=== PATIENT | female | born 1975 | race Caucasian/White ===

== ENCOUNTER 2016-09-26 21:21 | Emergency (ER) | payer BC ==
[~2016-09-26] VITALS: Ht 160 cm; Wt 115.8 kg
[~2016-09-26 21:21] MED LIST: LEVO50TA PO; PREN1TAB29
[2016-09-26 21:23] VITALS: TEMP 36.5; Ht 160 cm; Wt 115.8 kg
[2016-09-26 22:06] LABS: BASO % 0.2 %; BASO ABS # 0.02 K/uL (0-0.2); COMPLETE YES; EOS % 1.2 %; HEMATOCRIT 36.9 % (37-47); IG% 0.2 %; LYMPH % 24.5 %; MEAN CORPUSCULAR HEMOGLOBIN 26.3 pg (25-34); MEAN CORPUSCULAR HGB CONC 34.1 g/dl (32-36); MONO % 4.7 %; NEUT % 69.2 %; PLATELET COUNT 260 K/uL (130-400); RED BLOOD COUNT 4.79 M/uL (4.2-5.4); WHITE BLOOD COUNT 8.97 K/uL (4.8-10.8)
[2016-09-26] MEDS ORDERED: FERR50TA3 PO (22:09)
[2016-09-26] MEDS ORDERED: NAPR-1169 PO (22:09)
--- NOTE | 2016-09-26 22:12 | DIAGNOSTIC IMAGING REPORT ---
CHEST ONE VIEW PORTABLE HISTORY: Atypical CHEST PAIN COMPARISON: Chest 10/10/2012. FINDINGS: The lungs are clear. Cardiac silhouette is normal in size. No pleural effusions. No pneumothorax. IMPRESSION: No acute process. Electronically signed by: Wagner Almendarez M.D. 09/26/2016 10:10 PM Dictated Date/Time: 09/26/2016 10:09 PM
[2016-09-26 22:24] LABS: ALT/SGPT 32 U/L (12-78); BLOOD UREA NITROGEN 15 mg/dl (7-18); BUN/CREATININE RATIO 20.8 (10-20); CALCIUM 8.4 mg/dl (8.5-10.1); CARBON DIOXIDE 26 mmol/L (21-32); CHLORIDE 106 mmol/L (98-107); CREATININE 0.72 mg/dl (0.60-1.20); GLUCOSE 93 mg/dl (70-99); MAGNESIUM 1.9 mg/dl (1.8-2.4); POTASSIUM 3.7 mmol/L (3.5-5.1); SODIUM 140 mmol/L (136-145)
[2016-09-26 22:32] LABS: ALKALINE PHOSPHATASE 105 U/L (45-117); AST/SGOT 14 U/L (15-37); PREG INTERNAL NEGATIVE QC NEG CLEAR BACKGROUND; PREG INTERNAL POSITIVE QC POS CONTROL LINE
--- NOTE | 2016-09-27 00:22 | EMERGENCY ROOM VISIT NOTE ---
History First contact with patient: 21:28 Chief Complaint: CHEST PAIN Stated Complaint: CHEST TIGHTNES Nursing Triage Summary: patient reports back shoulder pain with pressure in the chest patient reports high blood pressure at doctor office patient reports "uneasy feeling" History of Present Illness The patient is a 41 year old female who presents to the Emergency Room with complaints of left-sided chest pain since this afternoon described as discomfort and feeling uneasy. Patient states most of her symptoms have not resolved. She had an ectopic back in April that was surgically removed. Her father had blood clots in his legs a few years ago. No other family history of clotting disorder. No family history of heart disease. Patient denies high blood pressure, cholesterol, diabetes. Patient does not smoke. Patient denies dyspnea, fever, chills, cough, congestion, abdominal pain , nausea, vomiting, diarrhea, back pain. Patient denies leg pain or swelling. Review of Systems See HPI for pertinent positives & negatives. A total of 10 systems reviewed and were otherwise negative. Past Medical/Surgical History Medical Problems: (1) CALCULUS OF KIDNEY (2) Kidney stone (3) Left shoulder surgery Surgical Problems: (1) Hx of cholecystectomy Family History Diabetes mellitus FHx: cancer FHx: gallbladder disease Hypertension Seizures Social History Smoking Status: Never Smoker Alcohol Use: none Drug Use: none Marital Status: single Occupation Status: employed Current/Historical Medications Scheduled Ferrous Sulfate (Iron (Ferrous Sulfate)), 1 TAB PO DAILY Scheduled PRN Naproxen (Naprosyn), 500 MG PO BID PRN for Pain Allergies Coded Allergies: Chicken Meat (Verified Allergy, Mild, GI SYMPTOMS, 09/26/16) Physical Exam Vital Signs Date Time Temp Pulse Resp B/P Pulse Ox O2 Delivery O2 Flow Rate FiO2 09/26/16 23:29 75 18 122/84 100 Room Air 09/26/16 21:55 82 09/26/16 21:23 36.5 98 18 143/77 98 Room Air Physical Exam VITALS: Vitals are noted on the nurse's note and reviewed by myself. Vital signs stable. GENERAL:pleasant female, in no acute distress, nondiaphoretic, well-developed well-nourished. SKIN: The skin was without rashes, erythema, edema, or bruising. There is no tenting of the skin. Capillary reflex less than 2 seconds. HEAD: Normocephalic atraumatic. EARS: External auditory canals clear, tympanic membranes pearly reilly without erythema or effusion bilaterally. EYES: Pupils equal round and reactive to light and accommodation. Conjunctivae without injection, sclerae without icterus. Extraocular movements intact. NOSE: Patent, turbinates without inflammation or discharge. MOUTH: Mucous membranes moist. Pharynx without erythema or exudate. Uvula midline. Airway patent. Tongue does not deviate. NECK: Supple without nuchal rigidity. No lymphadenopathy. No thyromegaly. Cervical spine is nontender. No JVD. HEART: Regular rate and rhythm without murmurs gallops or rubs. Chest nontender to palpation LUNGS: Clear to auscultation bilaterally without wheezes, rales or rhonchi. No dullness to percussion. No retractions or accessory muscle use. ABDOMEN: Positive bowel sounds x 4. Normal tympanic percussion. Soft, protuberant, obese, nontender, without masses or organomegaly. Mireles sign negative. No guarding or rebound tenderness. MUSCULOSKELETAL: No muscle atrophy, erythema, or edema noted. NEURO: Patient was alert and oriented to person place and time. Normal sensation to light and sharp touch. No focal neurological deficits. Medical Decision & Procedures Laboratory Results 09/26/16 21:53 Red Blood Count 4.79, Mean Corpuscular Volume 77.0, Mean Corpuscular Hemoglobin 26.3, Mean Corpuscular Hemoglobin Concent 34.1, Mean Platelet Volume 11.0, Neutrophils (%) (Auto) 69.2, Lymphocytes (%) (Auto) 24.5, Monocytes (%) (Auto) 4.7, Eosinophils (%) (Auto) 1.2, Basophils (%) (Auto) 0.2, Neutrophils # (Auto) 6.20, Lymphocytes # (Auto) 2.20, Monocytes # (Auto) 0.42, Eosinophils # (Auto) 0.11, Basophils # (Auto) 0.02 09/26/16 21:53 Test 09/26/16 21:51 09/26/16 21:53 09/26/16 23:20 Bedside D-Dimer 377 ng/mlFEU (0-450) White Blood Count 8.97 K/uL (4.8-10.8) Red Blood Count 4.79 M/uL (4.2-5.4) Hemoglobin 12.6 g/dL (12.0-16.0) Hematocrit 36.9 % (37-47) Mean Corpuscular Volume 77.0 fL (80-100) Mean Corpuscular Hemoglobin 26.3 pg (25-34) Mean Corpuscular Hemoglobin Concent 34.1 g/dl (32-36) Platelet Count 260 K/uL (130-400) Mean Platelet Volume 11.0 fL (7.4-10.4) Neutrophils (%) (Auto) 69.2 % Lymphocytes (%) (Auto) 24.5 % Monocytes (%) (Auto) 4.7 % Eosinophils (%) (Auto) 1.2 % Basophils (%) (Auto) 0.2 % Neutrophils # (Auto) 6.20 K/uL (1.4-6.5) Lymphocytes # (Auto) 2.20 K/uL (1.2-3.4) Monocytes # (Auto) 0.42 K/uL (0.11-0.59) Eosinophils # (Auto) 0.11 K/uL (0-0.5) Basophils # (Auto) 0.02 K/uL (0-0.2) RDW Standard Deviation 43.0 fL (36.4-46.3) RDW Coefficient of Variation 15.4 % (11.5-14.5) Immature Granulocyte % (Auto) 0.2 % Immature Granulocyte # (Auto) 0.02 K/uL (0.00-0.02) Anion Gap 8.0 mmol/L (3-11) Est Creatinine Clear Calc Drug Dose 127.5 ml/min Estimated GFR () 121.4 Estimated GFR (Non- 104.8 BUN/Creatinine Ratio 20.8 (10-20) Calcium Level 8.4 mg/dl (8.5-10.1) Magnesium Level 1.9 mg/dl (1.8-2.4) Total Bilirubin 0.3 mg/dl (0.2-1) Direct Bilirubin < 0.1 mg/dl (0-0.2) Aspartate Amino Transf (AST/SGOT) 14 U/L (15-37) Alanine Aminotransferase (ALT/SGPT) 32 U/L (12-78) Alkaline Phosphatase 105 U/L (45-117) Total Creatine Kinase 79 U/L (26-192) Creatine Kinase MB 1.6 ng/ml (0.5-3.6) Creatine Kinase MB Ratio 2.0 (0-3.0) Total Protein 7.1 gm/dl (6.4-8.2) Albumin 3.2 gm/dl (3.4-5.0) Lipase 119 U/L (73-393) Thyroid Stimulating Hormone (TSH) 8.700 uIu/ml (0.300-4.500) Human Chorionic Gonadotropin, Qual NEG (NEG) Troponin I < 0.015 ng/ml (0-0.045) ED Course Prior records/ancillary studies reviewed. Triage Nursing notes reviewed. Additional history obtained from family. The patient's history was concerning for chest pain. Differential diagnosis: Etiologies such as cardiac ischemia, aortic dissection, pulmonary embolism, pneumonia, pneumothorax, musculoskeletal, infections, pericarditis, myocarditis , esophageal rupture, gastrointestinal, as well as others were entertained. Physical examination: As above. ER treatment provided: pt was observed On reassessment the patient felt better. Diagnostic interpretation by me: The electrocardiogram was negative for pathologic change. Normal sinus, normal intervals, no acute ST-T wave changes. Impression normal sinus rhythm interpreted by myself The labs revealed negative troponin that was 2 hours apart, negative d-dimer mildly elevated TSH Imaging studies: Chest x-ray as above Exam and history seem consistent with noncardiac chest pain. Patient had 2 troponins that were negative 2 hours apart. Normal EKG. Negative d-dimer. She was well-appearing. She is advised to rest, stay well-hydrated and to follow-up with family care in a few days or here in the ER sooner for chest pain , difficulty breathing, worsening signs or symptoms or as needed. By the evaluation outlined above emergent etiologies such as cardiac ischemia, aortic dissection, pulmonary embolism, pneumonia, pneumothorax, infections, pericarditis, myocarditis, gastrointestinal, as well as others were deemed relatively unlikely. The pt informed about the findings as listed above. All questions were answered and pleased with the treatment. Return instructions were outlined and the patient was discharged in stable condition. Referral: The patient was referred back to primary care physician for follow-up in 2 to 3 days for a recheck of the current condition. case reviewed with my Attending. Medical Decision As above Impression Primary Impression: Substernal precordial chest pain Departure Information Dispostion Home / Self-Care Condition GOOD Referrals Maryellen MARROQUIN M.D. (PCP) Patient Instructions My [facility] Additional Instructions Ibuprofen(Motrin, Advil) may be used for fever or pain. Use 600mg every six hours as needed. Take with food. Avoid using more than 2400mg in a 24 hour period. Do not use 2400mg per day for more than three consecutive days without physician direction. Prolonged inappropriate use can lead to stomach upset or ulcers. (AND/OR) Acetaminophen(Tylenol) may be used for fever or pain. Use 1000mg every six hours as needed. Avoid using more than 3000mg in a 24 hour period. Rest and drink plenty of fluids as tolerated. Continue current medications. Avoid strenuous activities and anything that worsens your pain. Resume normal activities once your symptoms resolve. Return to the ER immediately for worsening or persistent chest pain, abdominal pain, vomiting, fevers, chest pains, difficulty breathing, worsening of your condition, or as needed. Follow up with your primary physician in 2-3 days for a recheck of your current condition.
[2016-09-27 00:29] VITALS: BP 122/94; PULSE 66; O2SAT 98
== END 2016-09-27 00:30 | disposition home or self-care (01) ==
LOC: C.EDB 21:22 → C.EDC 09-27 00:30
DX: R07.2 Precordial pain (principal); Z87.442 Personal history of urinary calculi; Z90.49 Acquired absence of other specified parts of digestive tract; Z98.890 Other specified postprocedural states; Z91.018 Allergy to other foods; Z83.3 Family history of diabetes mellitus; Z80.9 Family history of malignant neoplasm, unspecified; Z83.79 Family history of other diseases of the digestive system; Z82.49 Family history of ischemic heart disease and other diseases of the circulatory system; Z82.0 Family history of epilepsy and other diseases of the nervous system

== ENCOUNTER 2017-06-26 18:55 | Emergency (ER) | payer SELFPAY ==
[~2017-06-26] VITALS: Ht 160 cm; Wt 117.9 kg
[~2017-06-26 18:55] MED LIST changes: +FERR50TA3 PO; -LEVO50TA PO; +NAPR-1169 PO; -PREN1TAB29
[2017-06-26 19:00] VITALS: BP 140/64; TEMP 36.7; Ht 160 cm; Wt 117.9 kg
[2017-06-26] MEDS ORDERED: BCPILLS PO (19:32)
[2017-06-26] MEDS ORDERED: LEVO75TA5 PO (19:32)
--- NOTE | 2017-06-26 19:43 | DIAGNOSTIC IMAGING REPORT ---
L ANKLE MIN 3 VIEWS ROUTINE CLINICAL HISTORY: Left ankle pain following injury. COMPARISON: None FINDINGS: Alignment of the left ankle is anatomic. Talar dome is intact. There is no acute fracture. Slight irregularity along the syndesmosis reflects old injury. IMPRESSION: No acute fracture or dislocation of the left ankle. Electronically signed by: Randall Silva M.D. 06/26/2017 7:41 PM Dictated Date/Time: 06/26/2017 7:41 PM
[2017-06-26 20:21] VITALS: PULSE 92; O2SAT 97
--- NOTE | 2017-06-27 00:05 | EMERGENCY ROOM VISIT NOTE ---
ED Visit Note First contact with patient: 19:07 Chief Complaint: Left ankle pain. History of Present Illness: Ms. Moore is a 42-year-old female who ambulates into the ED using a walker complaining of left lateral ankle pain. Historically patient reports many years ago she had a left ankle fracture but was unsure the specific bone that was broken. Since that time she reports intermittently her ankle feels weak and gives out. Patient reports approximately one hour ago she was walking down the set of stairs carrying a laundry basket and when she stepped onto the floor she felt like her ankle was giving out from her previous injury and twisted her ankle. She reports since that time she has been having a throbbing pain in the area of the lateral malleolus. She rates this discomfort 9/10. The pain does intermittently radiate into the lower aspect of the distal fibula and into the superior aspect of the foot in the area of the talus. Her pain worsens with palpation, ambulation and inversion. She has not identified any alleviating factors related to the pain. She has not taken any medications for pain prior to arrival at the hospital She denies any associated hip pain, knee pain, ankle/foot weakness/numbness/ tingling. Review of Systems: As noted above in history of present illness. Past Medical History: As previously noted, gastric ulcers, kidney stones, hypothyroidism and status post cholecystectomy, section and unspecified left shoulder. Current Medications: Naprosyn, control, levothyroxine. Allergies to Medications: Patient denies. Social History: Patient is not currently employed; she feels safe in her home environment; she denies tobacco and alcohol use. Physical Examination: Vital Signs: Date Time Temp Pulse Resp B/P (MAP) Pulse Ox O2 Delivery O2 Flow Rate FiO2 06/26/17 20:21 92 18 97 06/26/17 19:00 36.7 112 20 140/64 97 GENERAL: 42-year-old female in mild distress due to pain, nontoxic-appearing, afebrile and hemodynamically stable. NEUROLOGICAL: Awake, alert and oriented to person, place and time. Answering questions appropriately and following commands. Good hand eye coordination. No focal motor or sensory deficits. SKIN: Warm, dry and pink. No soft tissue trauma noted. LEFT LOWER EXTREMITY: No gross bony deformity. No shortening or malrotation. No tenderness in the hip, thigh, knee, proximal lower leg or foot. Mild tenderness in the area just superior to the lateral malleolus and the distal tibia, tenderness and the ligamentous structures anterior and inferior to the malleolus and minimal tenderness over the anterior talus area. Over the lateral ankle there is swelling but no ecchymosis. I do not appreciate any bony deformity or crepitus throughout the ankle or foot. I do not appreciate any ligamentous laxity with testing but she did have moderate pain when performing inversion. She has full range of motion in all movements of the ankle and toes. Throughout the foot the skin was warm and pink and capillary refill is brisk. She is able to distinctly slight sensations through all dermatomes. ED Course: Patient is assessed as noted above. Patient's medication list was reviewed. Patient was offered pain medication and refused. Left Ankle X-Rays: Were read by myself and shows no acute fractures or dislocations. Radiologist does note there is a slight irregularity along the syndesmosis reflecting an old injury. Patient was placed in a gel splint; patient was offered crutches and refused and was trialed on her walker. After testing she reported she was having some pain but because of her lack of insurance she did not want crutches; just prior to discharge she did report she had a friend that had a pair crutches that would be willing to lend them to her. Patient was educated about today's findings and instructed on her treatment plan ; she verbalized understanding and agreement with this plan. Clinical Impression: Left ankle pain. Decision-Making: Initially my differential diagnosis I considered ankle fracture , foot fracture, ankle sprain, muscle strain, Achilles tendon injury and other causes. Disposition: Patient discharged home in stable condition accompanied by male friend; prior to departure she was reassessed and subjectively reported she was feeling the same. Plan: Patient was encouraged to alternate ibuprofen and acetaminophen every 3 hours for persistent pain. Patient was encouraged use ice on areas of pain and swelling 20-30 minutes a day for 5 or 6 times a day. Patient was encouraged to keep her foot elevated while at rest. Patient was encouraged use or gel splint with walker/nonweightbearing crutches for 3-6 days or until pain free. Patient was encouraged to follow-up with orthopedist if no better in 7-10 days. Patient was encouraged return ED for worsening/uncontrolled pain, uncontrolled swelling, foot weakness/numbness/tingling or any new/concerning symptoms.
== END 2017-06-26 20:22 | disposition home or self-care (01) ==
LOC: C.EDB 18:57 → C.EDD 20:22
DX: M25.572 Pain in left ankle and joints of left foot (principal); W10.9XXA Fall (on) (from) unspecified stairs and steps, initial encounter; Y92.9 Unspecified place or not applicable; E03.9 Hypothyroidism, unspecified; K25.9 Gastric ulcer, unspecified as acute or chronic, without hemorrhage or perforation; Z87.442 Personal history of urinary calculi; Z79.899 Other long term (current) drug therapy; Z79.3 Long term (current) use of hormonal contraceptives